=== PATIENT | female | born 1985 | race Caucasian/White ===

== ENCOUNTER 2017-01-08 00:56 | Emergency (ER) | payer SELFPAY ==
[~2017-01-08] VITALS: Ht 152.4 cm; Wt 48.0 kg
[~2017-01-08 00:56] MED LIST: DICL75 PO
[2017-01-08 00:57] VITALS: BP 138/80; PULSE 98; RESP 16; TEMP 97.7; O2SAT 100
[2017-01-08] MEDS ORDERED: MULT-65 PO (01:11)
--- NOTE | 2017-01-08 01:16 | PD ---
HPI Chief Complaint: Injury Time Seen by Provider: 01:08 Travel History International Travel<30 days: No Contact w/Intl Traveler<30days: No Traveled to known affect area: No History of Present Illness HPI 31-year-old [id number] white female presents emergency Department with complaints of right wrist pain and swelling after a slip and fall while mopping this evening around 7 PM. She states that she had fallen and flexed her wrist forward. It is been swollen and painful. Pain is moderate. Worse with movement. She denies any numbness or tingling. No injury to her head, neck or back. No alleviating factors. PFSH Past Medical History Medical History: Denies Significant Hx Diminished Hearing: No Immunizations Current: Yes Tetanus Vaccination: Unknown ?: Not LMP: 12/12/16 Past Surgical History Surgical History: No Previous Surgery Oral Surgery: Yes Social History Alcohol Use: Yes (RARE) Tobacco Use: Yes (5 CIG PER DAY) Substance Use: No Allergies-Medications (Allergen,Severity, Reaction): Coded Allergies: No Known Allergies (Verified Adverse Reaction, Unknown, 01/08/17) Reported Meds & Prescriptions Reported Meds & Active Scripts Active Reported Multi-Vitamin Daily (Multiple Vitamin) 1 Tab Tab 1 Tab PO DAILY Review of Systems General / Constitutional: No: Fever Eyes: No: Visual changes HENT: No: Headaches Cardiovascular: No: Chest Pain or Discomfort Respiratory: No: Shortness of Breath Gastrointestinal: No: Abdominal Pain Genitourinary: No: Dysuria Musculoskeletal: Positive: Arthralgias, Limited ROM, Edema, Pain Skin: No Rash Neurologic: No: Weakness Psychiatric: No: Depression Endocrine: No: Polydipsia Hematologic/Lymphatic: No: Easy Bruising Physical Exam Narrative GENERAL: Well-developed, well-nourished in no apparent distress. Nontoxic appearing. HEAD: Normocephalic, atraumatic. EYES: Pupils equal round and reactive. Extraocular motions intact. No scleral icterus. No injection or drainage. ENT: Nose clear. Throat without erythema, tonsillar hypertrophy or exudate. Uvula midline. Airway patent. NECK: Trachea midline. Supple, nontender, moves head freely. No central bony tenderness or spasm. CARDIOVASCULAR: Regular rate and rhythm without murmurs, gallops, or rubs. RESPIRATORY: Clear to auscultation. Breath sounds equal bilaterally. No wheezes , rales, or rhonchi. GASTROINTESTINAL: Abdomen soft, non-tender, nondistended. No hepato-splenomegaly , or palpable masses. No guarding. EXTREMITIES: No clubbing, cyanosis, examination the right upper extremity reveals moderate dorsal swelling of the distal third of the forearm into the wrist. She complains of diffuse pain in the wrist with global decreased range of motion. Positive snuffbox tenderness. No pain in the for hand or fingers. No pain in the elbow, shoulder. The left upper extremity as well as lower extremities are without localizing bony tenderness or deformity. She is neurovascular intact. Median/ulnar/radial nerves intact. BACK: Nontender without deformity. No flank tenderness. NEUROLOGICAL: Awake, alert and oriented x 3 .Cranial nerves grossly intact. Motor and sensory grossly within normal limits. Normal speech. Data Data Last Documented VS Vital Signs Date Time Temp Pulse Resp B/P (MAP) Pulse Ox O2 Delivery O2 Flow Rate FiO2 01/08/17 00:57 97.7 98 16 138/80 (99) 100 Room Air Orders Orders Wrist, Complete (Oyt2drd) (01/08/17 01:08) Ice/Cold Pack (01/08/17 01:08) Splint Or Brace Apply/Monitor (01/08/17 01:19) Ed Discharge Order (01/08/17 01:19) Ibuprofen (Motrin) (01/08/17 01:30) MDM Medical Decision Making Medical Screen Exam Complete: Yes Emergency Medical Condition: Yes Medical Record Reviewed: Yes Interpretation(s) Right wrist: Negative for acute fracture. Large soft tissue swelling Differential Diagnosis MDM: High Differential diagnoses: Fracture, sprain, strain, dislocation, contusion, neurovascular injury Narrative Course X-ray is negative for bony injury. She is given Motrin 600 mg by mouth, Tru wrap, ice pack. This is right wrist sprain Diagnosis Primary Impression: Right wrist sprain Qualified Codes: S63.501A - Unspecified sprain of right wrist, initial encounter Patient Instructions: General Instructions Additional Instructions: Rest. Elevation. Tru wrap. Diclofenac. Follow-up with a medical doctor in one week. Med/Other Pt SpecificInfo: Prescription(s) given Scripts Diclofenac Sodium DR (Diclofenac Sodium DR) 75 Mg Tabdr 75 MG PO BID, #20 TAB 0 Refills Prov: Kalyan Curtis MD 01/08/17 Disposition: 01 DISCHARGE HOME Condition: Stable Doni Bedoya Jan 08, 2017 01:16
[2017-01-08] MEDS ORDERED: DICL75TA PO (01:21)
[2017-01-08] MEDS ORDERED: IBUPROFEN 600 MG TAB PO ONE (01:30)
--- NOTE | 2017-01-08 01:43 | RADRPT ---
EXAM DATE/TIME: 01/08/2017 01:13 [facility] COMPARISON: No previous studies available for comparison. INDICATIONS : Fall. Right wrist pain. MEDICAL HISTORY : None. SURGICAL HISTORY : None. ENCOUNTER: Initial ACUITY: 1 day PAIN SCORE: 8/10 LOCATION: Right upper extremity FINDINGS: There is extensive soft tissue swelling with nondisplaced fracture of the distal radius best seen on the lateral view. No intra-articular extension is present. Bony mineralization is normal. CONCLUSION: 1. Nondisplaced distal radius fracture Janusz Manzano MD on January 08, 2017 at 1:39 Board Certified Radiologist. This report was verified electronically.
== END 2017-01-08 01:46 | disposition home or self-care (01) ==
LOC: NEPD 00:56
DX: S63.501A Unspecified sprain of right wrist, initial encounter (principal); W01.0XXA Fall on same level from slipping, tripping and stumbling without subsequent striking against object, initial encounter; Y93.E5 Activity, floor mopping and cleaning
CPT/HCPCS: 73110; 99283

== ENCOUNTER 2017-01-16 23:53 | Emergency (ER) | payer SELFPAY ==
[~2017-01-16] VITALS: Ht 152.4 cm; Wt 52.0 kg
[~2017-01-16 23:53] MED LIST changes: -DICL75 PO; +DICL75TA PO; +MULT-65 PO
[2017-01-16 23:57] VITALS: BP 145/87; PULSE 96; RESP 16; TEMP 97.9; O2SAT 100
--- NOTE | 2017-01-17 00:21 | PD ---
HPI Chief Complaint: Medical Clearance Time Seen by Provider: 00:04 Travel History International Travel<30 days: No Contact w/Intl Traveler<30days: No Traveled to known affect area: No History of Present Illness HPI The patient is a 31 year old female who presents to the [facility] emergency department with a history of right wrist pain that began on January 08 when she slipped and fell while cleaning. The patient reports that she landed on her extended right wrist/hand. Patient reports having pain in the right wrist and right elbow. The patient was seen in the emergency department on January 08 related to this. The patient had an x-ray of the right wrist on. The patient was told that she had a wrist sprain, however she received a letter in the mail stating that she had a nondisplaced radial fracture and would need to come back to the emergency department for splinting. The patient reports that she has had continued discomfort, however the swelling has gone down. The patient reports that she has been taking ibuprofen as needed for pain. The patient denies having any numbness or tingling to her fingers. She denies having any loss of range of motion of her fingers or hand. She does report having pain with flexion and extension at the right wrist. She also reports having posterior right elbow pain. On review of systems otherwise, the patient denies having any recent fevers, cough, congestion, neck pain, chest pain, shortness of breath, abdominal pain, vomiting, diarrhea, urinary symptoms , or neurologic symptoms. [facility] Past Medical History Narrative Medical The patient's past medical history is reportedly none. Medical History: Denies Significant Hx Diminished Hearing: No Immunizations Current: Yes Tetanus Vaccination: Unknown Influenza Vaccination: No ?: Not LMP: 01/09/17 Past Surgical History Narrative Surgical The patient's past surgical history significant for wisdom teeth extraction. Oral Surgery: Yes (WISDOM TEETH X4) Social History Alcohol Use: Yes (RARE) Tobacco Use: Yes (5 CIG PER DAY) Substance Use: No Allergies-Medications (Allergen,Severity, Reaction): Coded Allergies: No Known Allergies (Verified Adverse Reaction, Unknown, 01/17/17) Reported Meds & Prescriptions Reported Meds & Active Scripts Active No Active Prescriptions or Reported Medications Review of Systems Except as stated in HPI: all other systems reviewed are Neg General / Constitutional: No: Fever Eyes: No: Visual changes HENT: No: Headaches Cardiovascular: No: Chest Pain or Discomfort Respiratory: No: Shortness of Breath Gastrointestinal: No: Abdominal Pain Genitourinary: No: Dysuria Musculoskeletal: Positive: Myalgias, Arthralgias, Edema, Pain Skin: No Rash Neurologic: No: Weakness Psychiatric: No: Depression Endocrine: No: Polydipsia Hematologic/Lymphatic: No: Easy Bruising Physical Exam Narrative General: The patient is a well-developed well-nourished female in no acute distress. Head and Neck exam: Head is normocephalic atraumatic. Eyes: EOMI, pupils are equal round and reactive to light. Nose: Midline septum with pink mucous membranes Mouth: Dentition unremarkable. Moist mucus membranes. Posterior oropharynx is not erythematous. No tonsillar hypertrophy. Uvula midline. Airway patent. Neck: No palpable lymphadenopathy. No nuchal rigidity. No thyromegaly. Cardiovascular: Regular rate and rhythm without murmurs, gallops, or rubs. Lungs: Clear to auscultation bilaterally. No wheezes, rhonchi, or rales. Abdomen: Soft, without tenderness to palpation in all 4 quadrants of the abdomen. No guarding, rebound, or rigidity. Normal bowel sounds are audible. No tenderness on palpation of McBurney's point. Extremities: No clubbing, cyanosis, or edema, except in the area of interest, the right wrist , the patient reports having tenderness on palpation along the distal radius. There is some swelling noted. There is some ecchymosis that has developed. There is no crepitus. There is no loss of range of motion. The patient has less than 3 second capillary refill. Intact sensation over all fingertips. The patient additionally reports having some posterior right elbow pain. The patient has no edema noted. No loss of range of motion in flexion, extension, supination or pronation.. 2+ pulses in all 4 extremities. Compartments are soft of the forearm, wrist, hand. Neurologic Exam: Grossly nonfocal. Skin Exam: No rash noted. Intact skin that is warm and dry. Data Data Last Documented VS Vital Signs Date Time Temp Pulse Resp B/P (MAP) Pulse Ox O2 Delivery O2 Flow Rate FiO2 01/16/17 23:57 97.9 96 16 145/87 (106) 100 Room Air Orders Orders Ice/Cold Pack (01/17/17 00:05) Splint Or Brace Apply/Monitor (01/17/17 00:05) Elbow, Limited (Ap&Lat) (01/17/17 00:11) Wrist, Complete (Cyy4tfo) (01/17/17 00:11) [facility] Medical Decision Making Medical Screen Exam Complete: Yes Emergency Medical Condition: Yes Medical Record Reviewed: Yes Interpretation(s) Last Impressions Wrist X-Ray 01/17/1710 Signed Impressions: Service Date/Time: Tuesday, January 17, 2017 00:23 - CONCLUSION: Splinted which obscures fine bony detail. Decreasing soft tissue swelling, now mild. No perceptible fracture line Dami Oh MD Elbow X-Ray 01/17/1710 Signed Impressions: Service Date/Time: Tuesday, January 17, 2017 00:22 - CONCLUSION: Right elbow grossly intact. Dami Oh MD Differential Diagnosis Elbow fracture, versus dislocation, versus tendinitis, versus displaced radial fracture Narrative Course During the course of the patients emergency department visit, the patients history, examination, and differential diagnosis were reviewed with the patient. The patient was placed on a transfusion nurse with oximetry and frequent blood pressure monitoring. The patient had an x-ray of the right wrist repeated given that the patient has not been in a splint for the last week with a fracture. The patient also had her right elbow x-ray. The patient was initially provided an ice pack to her arm. The patient was placed in a sugar tong splint of the right wrist. Radiology studies were reviewed and remarkable for an x-ray of the right wrist that reveals a nondisplaced distal radius fracture, elbow x-ray reveals no acute abnormality. 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 This is Dr. Wu. The patient was instructed to follow-up with him by calling for an appointment in the morning. The patient was also given a mandatory follow-up with the orthopedic physician through case management as she appears to be uninsured. The patient is resting comfortably and feels better, is alert and in no distress. The patients results and examination findings were discussed with the patient. The repeat examination is unremarkable and benign. The history, exam, diagnostic testing, and current condition do not suggest any significant pathology to warrant further testing, continued ED treatment, admission, or surgical evaluation at this point. The vital signs have been stable. The patient does not have uncontrollable pain, intractable vomiting, or other significant symptoms. The patient's condition is stable and appropriate for discharge. The patient will pursue further outpatient evaluation with a primary care physician or other designated or consulting physician as indicated in the discharge instructions. The patient expressed understanding and was agreeable with this plan. Diagnosis Primary Impression: Right wrist fracture Qualified Codes: S62.101D - Fracture of unspecified carpal bone, right wrist, subsequent encounter for fracture with routine healing Referrals: Tim Wu MD call for appointment Patient Instructions: General Instructions, Wrist Fracture in Adults (ED) Med/Other Pt SpecificInfo: Prescription(s) given Scripts Ibuprofen (Ibuprofen) 600 Mg Tab 600 MG PO Q8H Y for PAIN SCALE 5 TO 10, #12 TAB 0 Refills Prov: Judith James MD 01/17/17 Disposition: 01 DISCHARGE HOME Condition: Stable Judith James MD Jan 17, 2017 00:21
--- NOTE | 2017-01-17 00:33 | RADRPT ---
EXAM DATE/TIME: 01/17/2017 00:22 [facility] COMPARISON: No previous studies available for comparison. INDICATIONS : Post splint. MEDICAL HISTORY : None. SURGICAL HISTORY : None. ENCOUNTER: [facility] ACUITY: 1 week PAIN SCORE: 8/10 LOCATION: Right elbow FINDINGS: Patient is in a splint which obscures fine bony detail. I do see a fracture or subluxation of the rig ht elbow. No perceptible joint effusion. CONCLUSION: Right elbow grossly intact. Dami Oh MD on January 17, 2017 at 0:30 Board Certified Radiologist. This report was verified electronically.
--- NOTE | 2017-01-17 00:34 | RADRPT ---
EXAM DATE/TIME: 01/17/2017 00:23 [facility] COMPARISON: WRIST RIGHT COMPLETE ([id number]), January 08, 2017, 1:13. INDICATIONS : Post splint. MEDICAL HISTORY : None. SURGICAL HISTORY : None. ENCOUNTER: [facility] ACUITY: 1 week PAIN SCORE: 8/10 LOCATION: Right wrist FINDINGS: Cast is present. Three view examination of the right wrist demonstrates no soft tissue swelling, disl ocation, or fracture. The carpal bones are in normal alignment. The joint spaces are maintained. B panfilo mineralization is normal. CONCLUSION: Splinted which obscures fine bony detail. Decreasing soft tissue swelling, now mild. No perceptible f racture line Dami Oh MD on January 17, 2017 at 0:31 Board Certified Radiologist. This report was verified electronically.
[2017-01-17] MEDS ORDERED: IBUP-232 PO (00:44)
== END 2017-01-17 00:55 | disposition home or self-care (01) ==
LOC: NEPE 23:53
DX: S62.101D Fracture of unspecified carpal bone, right wrist, subsequent encounter for fracture with routine healing (principal); M25.521 Pain in right elbow; F17.210 Nicotine dependence, cigarettes, uncomplicated; W01.0XXD Fall on same level from slipping, tripping and stumbling without subsequent striking against object, subsequent encounter
CPT/HCPCS: 29125; 73070; 73110

== ENCOUNTER 2017-05-20 13:39 | Emergency (ER) | payer SELFPAY ==
[~2017-05-20] VITALS: Ht 152.4 cm; Wt 50.0 kg
[~2017-05-20 13:39] MED LIST changes: -DICL75TA PO; +IBUP-232 PO; -MULT-65 PO
[2017-05-20 14:02] VITALS: BP 113/56; PULSE 76; RESP 16; TEMP 98.2; O2SAT 100
== END 2017-05-20 20:50 | disposition left against medical advice (07) ==
LOC: NETRI 13:39
DX: H92.01 Otalgia, right ear (principal); Z53.21 Procedure and treatment not carried out due to patient leaving prior to being seen by health care provider
CPT/HCPCS: 99281